=== PATIENT | male | born 1960 | race Caucasian/White ===

== ENCOUNTER 2017-02-24 11:15 | Emergency (ER) ==
[2017-02-24 11:26] VITALS: BP 150/85; TEMP 99.9; BMI 34.9
--- NOTE | 2017-02-24 12:02 | DI ---
EXAM: Radiographs, right first finger HISTORY: Initial presentation for right first finger trauma. COMPARISON: None available. TECHNIQUE: Three views. FINDINGS/IMPRESSION: Comminuted displaced distal tuft fracture of the first distal phalanx noted with adjacent soft tissu e injury.
[2017-02-24] MEDS ORDERED: TENIVAC IM ONE (13:45)
[2017-02-24] MEDS ORDERED: ROCEPHIN IM STA (13:45)
[2017-02-24] MEDS ORDERED: LIDOCAINE 1 % AMP 5 ML (SUTURES) IM STA (13:46)
[2017-02-24] MEDS ORDERED: LIDOCAINE 1 % AMP 5 ML (SUTURES) SUBCUT STA (13:46)
[2017-02-24] MEDS ORDERED: LIDOCAINE 1 % AMP 5 ML (SUTURES) ONE (13:50)
--- NOTE | 2017-02-24 13:51 | ED.PDOC ---
General ED Provider: Dr. TR DOVE Chief Complaint: Bite Stated Complaint: dog bite right thumb Time Seen by Physician: 11:30 (dog bite involving right thumb 12 hours ago) Mode of Arrival: Walk-In Information Source: Patient Exam Limitations: No limitations Nursing and Triage Documentation Reviewed and Agree: Yes Trauma/Injury Complaint Exam - Bite Injury Complaint/Exam Location of Bite: right thumb see photos before and after Bite Occured: home of a family member Symptoms Are: Still present Type of Bite: Reports: Pet animal Animal Immunized: Reports: Yes Initial Severity: Moderate Current Severity: Moderate Character: Reports: Puncture, Full-thickness Aggravating: Reports: None Alleviating: Reports: None Associated Signs and Symptoms: Denies: Fever, Erythema, Drainage, Swelling, Lymphadenopathy, Numbness, Tingling, Limited ROM Related History: Reports: Unprovoked (gog was snoring pt tried to get him up and feed him dog very upset) Animal Available for Observation: Yes Animal Control Notified: No Infection/Sepsis Risk Factors: Present: Diabetes, Full Thickness-Puncture, Delay in initial tx (by 12 hours ), Immunocompromised patient (diabetic ). Absent: Foreign body present Bite Findings: Present: Tenderness, Ecchymosis Wound Description: Present: Puncture wound, Crush injury, Laceration (see photos ) Drainage: Present: None Differential Diagnoses: Crush Injury, Laceration, Deep Space Infection Review of Systems - Review Of Systems Constitutional: Reports: No symptoms Eyes: Reports: No symptoms Ears, Nose, Mouth, Throat: Reports: No symptoms Respiratory: Reports: No symptoms Cardiac: Reports: No symptoms GI: Reports: No symptoms : Reports: No symptoms Musculoskeletal: Reports: Other (dog bite see photos) Skin: Reports: No symptoms Neurological: Reports: No symptoms Endocrine: Reports: No symptoms Hematologic/Lymphatic: Reports: No symptoms All Other Systems: Reviewed and Negative Past Medical History - Past Medical History Previously Healthy: No Endocrine: Reports: DM 2 Cardiovascular: Reports: Hypertension Respiratory: Reports: None Hematological: Reports: None Gastrointestinal: Reports: None Genitourinary: Reports: None Neuro/Psych: Reports: None Musculoskeletal: Reports: None Cancer: Reports: None - Surgical History General Surgical History: Reports: Unknown - Family History Family History: Reports: Unknown - Social History Smoking Status: Never smoker Hx Substance Use: No Alcohol Screening: Occasionally - Immunizations Tetanus Shot up to Date: Yes (july 2016) Physical Exam - Physical Exam Appearance: Well-appearing, No pain distress, Well-nourished Eyes: KEV, EOMI, Conjunctiva clear ENT: Ears normal, Nose normal, Oropharynx normal Respiratory: Airway patent, Breath sounds clear, Breath sounds equal, Respirations nonlabored Cardiovascular: RRR, Pulses normal, No rub, No murmur GI/: Soft, Nontender, No masses, Bowel sounds normal, No Organomegaly Musculoskeletal: Limited ROM (ght thumb the involved thumb is noted to sustain a puncture wound through distal pulp and measures 1 cm ) Skin: Warm, Dry, Normal color Neurological: Sensation intact, Motor intact, Reflexes intact, Cranial nerves intact, Alert, Oriented Psychiatric: Affect appropriate, Mood appropriate Procedures - Laceration/Wound Repair No standard instances Wound Description: Irregular, Flap, Other (see photos) Wound Length (cm): 1cm Wound Width: 3mm Wound Depth: 3mm no susan protrusions Wound Explored: Contaminated (dog bite ) Wound Irrigated: No Wound Prep: Hibiclens Anesthesia: Lidocaine (plain 0.5ml) Wound Debrided: Minimal Undermining: Moderate Wound Margins: Revised, Vermilion border aligned, Flaps aligned Wound Repaired With: Sutures Suture Size and Type: 4 prolene Number of Sutures: 6 Number of Rolo: 0 Layer Closure?: No Critical Care Note - Critical Care Note Total Time (mins): 0 Course - Course Orders, Labs, Meds: Orders Category Date Time Status Ceftriaxone Sodium [Rocephin] MEDS 02/24/17 13:45 Stat 1 gm IM ONCE STA Lidocaine HCl/Pf [Lidocaine 1 % Amp 5 ml (Sutures)] MEDS 02/24/17 13:46 Stat 2.1 ml IM ONCE STA Lidocaine HCl/Pf [Lidocaine 1 % Amp 5 ml (Sutures)] MEDS 02/24/17 13:46 Stat 5 ml SUBCUT ONCE STA Tetanus and Diphtheria Tox/Pf [Tenivac] MEDS 02/24/17 13:45 Once 0.5 ml IM .ONCE ONE THUMB, LEFT Stat RADS 02/24/17 11:43 Completed Medications Discontinued Medications Generic Name Dose Route Start Last Admin Trade Name Freq PRN Reason Stop Dose Admin Ceftriaxone Sodium 1 gm 02/24/17 13:45 Rocephin IM 02/24/17 13:46 ONCE STA Lidocaine HCl 2.1 ml 02/24/17 13:46 Lidocaine 1 % Amp 5 Ml (Sutures) IM 02/24/17 13:47 ONCE STA Lidocaine HCl 5 ml 02/24/17 13:46 Lidocaine 1 % Amp 5 Ml (Sutures) SUBCUT 02/24/17 13:47 ONCE STA Tetanus/Diphtheria Toxoids Adsorbed 0.5 ml 02/24/17 13:45 Tenivac IM 02/24/17 13:46 .ONCE ONE Vital Signs: Temp Pulse Resp BP Pulse Ox 02/24/17 11:16 99.9 F H 96 H 20 150/85 H 94 L Departure - Departure Time of Disposition: 13:55 (see all photos before and after . if no bony protrusion dress wound send home ) Disposition: HOME SELF-CARE Discharge Problem: Laceration - injury Dog bite of right thumb Qualifiers: Encounter type: initial encounter Qualifier Code: (S61.051A) Open bite of right thumb without damage to nail, initial encounter Instructions: Animal Bite (ED), Laceration (ED), Finger Laceration (ED), Care For Your Stitches (ED) Condition: Good Pt referred to PMD for follow-up: Yes (spoke to [facility] office instruction given if there is no bony protrusion ) Additional Instructions: Please call your Family Physician as soon as possible to schedule a follow-up appointment.see [facility] doctor SOON POSSIBLE Prescriptions: Amoxicillin/Potassium Clav [Augmentin 875-125 mg Tab] 1 tab PO Q12HR #14 tablet Allergies/Adverse Reactions: Allergies No Known Allergies Allergy (Unverified 02/24/17 11:28) Home Medications: Ambulatory Orders Amlodipine Besylate 10 mg PO DAILY 02/24/17 Amoxicillin/Potassium Clav [Augmentin 875-125 mg Tab] 1 tab PO Q12HR #14 tablet 02/24/17 Atorvastatin Calcium 40 mg PO DAILY 02/24/17 Latanoprost [Xalatan] 1 drop OP BEDTIME 02/24/17 Lisinopril [Zestril] 5 mg PO DAILY 02/24/17 Metformin HCl [Metformin HCl ER] 500 mg PO BID 02/24/17
== END 2017-02-24 14:11 | disposition home or self-care (01) ==
LOC: ED 11:15
DX: S61.051A Open bite of right thumb without damage to nail, initial encounter (principal); W54.0XXA Bitten by dog, initial encounter
CPT/HCPCS: 90471; 96372; 99283

== ENCOUNTER 2017-10-17 15:38 | Outpatient (CLI) | END 2017-10-17 15:39 | disposition home or self-care (01) | LOC: LAB 15:38 | PROVIDERS: ATTEND Internal Medicine | DX: E78.5 Hyperlipidemia, unspecified (principal); E11.9 Type 2 diabetes mellitus without complications; I10 Essential (primary) hypertension | CPT/HCPCS: 36415; 80053; 80061; 83036; 84443; 85025 ==

== ENCOUNTER 2017-12-23 15:49 | Outpatient (CLI) | END 2017-12-23 15:50 | disposition home or self-care (01) | LOC: RHC-LAB 15:49 | PROVIDERS: ATTEND Emergency Medicine | DX: E11.9 Type 2 diabetes mellitus without complications (principal); E78.5 Hyperlipidemia, unspecified; I10 Essential (primary) hypertension | CPT/HCPCS: 36415; 80053; 80061; 83036; 84443; 85025 ==

== ENCOUNTER 2018-02-27 11:36 | Outpatient (CLI) ==
[2018-02-20 11:03] VITALS: BMI 34.9
== END 2018-02-27 11:37 | disposition home or self-care (01) ==
LOC: LAB 11:36
PROVIDERS: ATTEND Emergency Medicine
DX: E11.9 Type 2 diabetes mellitus without complications (principal); E78.5 Hyperlipidemia, unspecified; I10 Essential (primary) hypertension
CPT/HCPCS: 36415; 80053; 80061; 83036; 84443; 85025

== ENCOUNTER 2018-06-09 16:06 | Outpatient (CLI) ==
[2018-02-20 11:03] VITALS: BMI 34.9
== END 2018-06-09 16:07 | disposition home or self-care (01) ==
LOC: LAB 16:06
PROVIDERS: ATTEND Emergency Medicine
DX: E78.5 Hyperlipidemia, unspecified (principal); E11.9 Type 2 diabetes mellitus without complications; I10 Essential (primary) hypertension; E66.9 Obesity, unspecified
CPT/HCPCS: 36415; 80053; 80061; 83036; 84443; 85025

== ENCOUNTER 2018-12-04 07:51 | Outpatient (CLI) ==
[2018-02-20 11:03] VITALS: BMI 34.9
== END 2018-12-04 07:52 | disposition home or self-care (01) ==
LOC: RHC-LAB 07:51
PROVIDERS: ATTEND Nurse Practitioner Family
DX: E78.5 Hyperlipidemia, unspecified (principal); E11.9 Type 2 diabetes mellitus without complications; Z79.4 Long term (current) use of insulin
CPT/HCPCS: 36415; 80053; 80061; 83037

== ENCOUNTER 2019-03-02 08:31 | Outpatient (CLI) ==
[2018-02-20 11:03] VITALS: BMI 34.9
== END 2019-03-02 08:32 | disposition home or self-care (01) ==
LOC: RHC-LAB 08:31
PROVIDERS: ATTEND Nurse Practitioner Family
DX: E11.9 Type 2 diabetes mellitus without complications (principal); I10 Essential (primary) hypertension; E78.5 Hyperlipidemia, unspecified
CPT/HCPCS: 36415; 80053; 80061; 83036; 85025

== ENCOUNTER 2019-06-05 07:46 | Outpatient (CLI) ==
[2018-02-20 11:03] VITALS: BMI 34.9
== END 2019-06-05 07:47 | disposition home or self-care (01) ==
LOC: RHC-LAB 07:46
PROVIDERS: ATTEND Nurse Practitioner Family
DX: E11.9 Type 2 diabetes mellitus without complications (principal); E78.5 Hyperlipidemia, unspecified
CPT/HCPCS: 36415; 80053; 83036